=== PATIENT | female | born 1985 | race African-American/Black ===

== ENCOUNTER 2017-11-26 04:07 | Emergency (ER) | payer MEDICAID ==
[~2017-11-26] VITALS: Ht 149.9 cm; Wt 59.0 kg
[~2017-11-26 04:07] MED LIST: FERR-43 PO; FOLI-43 PO; IBUP-516 PO
[2017-11-26] MEDS ORDERED: ONDANSETRON HCL 4MG/2ML VIAL IV STA (05:07)
[2017-11-26] MEDS ORDERED: SODIUM CHLORIDE 0.9% 1,000 ML IV ONE (05:07)
[2017-11-26] MEDS ORDERED: MORPHINE SULFATE 4 MG/ML CPJ (NOT FOR IM USE) IV STA (05:07)
[2017-11-26 05:58] LABS: HEMATOCRIT. 28.2 % (36.0-48.0); HEMOGLOBIN. 9.6 g/dL (12.0-16.0); MEAN CORPUSCULAR VOLUME 81.8 fL (81.0-99.0); MEAN PLATELET VOLUME 9.5 fl (7.4-10.4); PLATELET 121 x1000/uL (130-400); RED BLOOD CELL COUNT 3.45 mill/uL (4.2-5.4); RED CELL DISTRIBUTION WIDTH 18.7 % (11.6-14.6)
[2017-11-26 06:19] LABS: CHLORIDE 109 mEq/L (98-107)
[2017-11-26 06:40] LABS: CLARITY URINE CLEAR (CLEAR); COLOR URINE YELLOW (YELLOW); KETONES URINE NEGATIVE (NEGATIVE); LEUKOCYTE ESTERASE URINE 1+ (NEGATIVE); NITRITE URINE POSITIVE (NEGATIVE); OCCULT BLOOD URINE NEGATIVE (NEGATIVE); PROTEIN URINE NEGATIVE (NEGATIVE); SPECIFIC GRAVITY URINE 1.013 (1.005-1.030)
[2017-11-26] MEDS ORDERED: KETOROLAC 30MG/ML VIAL IV ONE (06:45)
[2017-11-26] MEDS ORDERED: SODIUM CHLORIDE 0.9% 500 ML IV ONE (06:45)
[2017-11-26 06:54] VITALS: BP 104/67
[2017-11-26 07:56] LABS: PLATELET ESTIMATE SLIGHTLY DECREASED
== END 2017-11-26 08:38 | disposition home or self-care (01) ==
LOC: ER 04:31
DX: D57.00 Hb-SS disease with crisis, unspecified (principal); N39.0 Urinary tract infection, site not specified; F12.10 Cannabis abuse, uncomplicated
CPT/HCPCS: 36415; 71045; 80053; 81003; 81025; 85025; 85044; 87077; 87086; 87186; 93005; 96374; 96375; 99285; J1885; J2270; J2405; J7030; J7040; Z7610

== ENCOUNTER 2018-05-26 08:48 | Emergency (ER) | payer MEDICAID ==
[~2018-05-26] VITALS: Ht 149.9 cm; Wt 58.8 kg
[2018-05-26] MEDS ORDERED: SODIUM CHLORIDE 0.9% 1,000 ML IV ONE (10:26)
[2018-05-26] MEDS ORDERED: KETOROLAC 30MG/ML VIAL IV STA (10:26)
[2018-05-26] MEDS ORDERED: ONDANSETRON HCL 4MG/2ML INJ IV STA (10:26)
[2018-05-26] MEDS ORDERED: MORPHINE SULFATE 10 MG/ML CPJ IV ONE (11:00)
[2018-05-26 11:52] LABS: BASOPHILS % 0.5 % (0.0-2.0); CHLORIDE 105 mEq/L (98-107); EOSINOPHILS % 1.6 % (0.0-5.0); HEMOGLOBIN. 11.5 g/dL (12.0-16.0); LYMPHOCYTES % 16.4 % (20.0-50.0); MEAN CORPUSCULAR HEMOGLOBIN 28.2 pg (28.0-32.0); MEAN CORPUSCULAR VOLUME 81.3 fL (81.0-99.0); MEAN PLATELET VOLUME 9.9 fl (7.4-10.4); MONOCYTES % 4.1 % (2.0-8.0); NEUTROPHILS % 77.4 % (40.0-76.0); PLATELET 181 x1000/uL (130-400); RED BLOOD CELL COUNT 4.06 mill/uL (4.2-5.4)
[2018-05-26 11:53] LABS: INR 1.1; PARTIAL THROMBOPLASTIN TIME 30.1 sec (23.4-31.0); PROTHROMBIN TIME 11.1 sec (9.1-11.1)
[2018-05-26 11:56] LABS: CLARITY URINE CLEAR (CLEAR); COLOR URINE YELLOW (YELLOW); KETONES URINE 1+ (NEGATIVE); LEUKOCYTE ESTERASE URINE TRACE (NEGATIVE); NITRITE URINE NEGATIVE (NEGATIVE); OCCULT BLOOD URINE NEGATIVE (NEGATIVE); PH URINE 6.5 (4.5-8.0); PROTEIN URINE NEGATIVE (NEGATIVE); SPECIFIC GRAVITY URINE 1.014 (1.005-1.030)
[2018-05-26 11:59] LABS: ETHANOL BLOOD < 10 mg/dL
[2018-05-26 12:02] LABS: CREATINE KINASE 52 IU/L (26-192)
[2018-05-26 12:08] LABS: HCG SCREEN NEGATIVE
[2018-05-26 12:23] LABS: *BARBITURATES SCREEN URINE NEGATIVE (NEGATIVE)
[2018-05-26 12:24] LABS: *AMPHETAMINES SCREEN URINE NEGATIVE (NEGATIVE); *BENZODIAZEPINES SCREEN URINE NEGATIVE (NEGATIVE); *COCAINE SCREEN URINE NEGATIVE (NEGATIVE); METHADONE URINE SCREEN NEGATIVE (NEGATIVE); OPIATES URINE SCREEN NEGATIVE (NEGATIVE)
[2018-05-26 12:26] LABS: CANNABINOID URINE SCREEN PRESUMTIVE POSITIVE (NEGATIVE); PHENCYCLIDINE URINE SCREEN PRESUMTIVE POSITIVE (NEGATIVE)
[2018-05-26] MEDS ORDERED: LORAZEPAM 2MG/ML CPJ IV ONE (17:15)
[2018-05-26] MEDS ORDERED: DOCUSATE SODIUM 100MG CAPSULE PO PRN (18:30)
[2018-05-26] MEDS ORDERED: ACETAMINOPHEN 325MG TABLET PO PRN (18:30)
[2018-05-26] MEDS ORDERED: IPRATROPIUM/ALBUTEROL 0.5-3(2.5)MG/3ML NEB INH SCH (18:30)
[2018-05-26] MEDS ORDERED: ONDANSETRON HCL 4MG/2ML INJ IV PRN (18:30)
[2018-05-26] MEDS ORDERED: ENOXAPARIN 40MG/0.4ML SYR SUBCUT SCH (18:30)
[2018-05-26] MEDS ORDERED: ACETAMINOPHEN 650MG/20.3ML UDC GT PRN (18:30)
[2018-05-26] MEDS ORDERED: CLONIDINE 0.1MG TABLET PO PRN (18:30)
[2018-05-26] MEDS ORDERED: GUAIFENESIN 200MG/10ML SUGAR FREE UDC PO PRN (18:30)
[2018-05-26] MEDS ORDERED: DIPHENHYDRAMINE 50MG/ML VIAL IV PRN (18:30)
[2018-05-26] MEDS ORDERED: HYDROCODONE/ACETAMINOPHEN 10/325MG TABLET PO PRN (18:30)
[2018-05-26] MEDS ORDERED: HYDROCODONE/ACETAMINOPHEN 5/325MG TABLET PO PRN (18:30)
[2018-05-26] MEDS ORDERED: IPRATROPIUM/ALBUTEROL 0.5-3(2.5)MG/3ML NEB INH PRN (18:30)
[2018-05-26] MEDS ORDERED: ACETAMINOPHEN 650MG SUPP PR PRN (18:30)
[2018-05-26] MEDS ORDERED: SODIUM CHLORIDE 0.9% INJ 3ML FLUSH IVF SCH (22:00)
[2018-05-26] MEDS ORDERED: LORAZEPAM 1MG TABLET PO ONE (22:15)
[2018-05-27] MEDS ORDERED: ONDANSETRON 4MG ODT PO ONE (20:00)
[2018-05-27] MEDS ORDERED: LORAZEPAM 1MG TABLET PO ONE (20:00)
[2018-05-28] MEDS ORDERED: KETOROLAC 30MG/ML VIAL IV ONE (07:00)
[2018-05-28] MEDS ORDERED: SODIUM CHLORIDE 0.9% 1,000 ML IV ONE (07:00)
[2018-05-28 11:04] VITALS: BP 122/78
== END 2018-05-28 11:08 | disposition home or self-care (01) ==
LOC: ER 12:46 → EDBEDREQSVC 13:11 → CANBEDREQ 13:39 → ER 05-28 11:08
DX: D57.00 Hb-SS disease with crisis, unspecified (principal); R53.1 Weakness; F16.10 Hallucinogen abuse, uncomplicated; F32.9 Major depressive disorder, single episode, unspecified; F17.200 Nicotine dependence, unspecified, uncomplicated; Z90.710 Acquired absence of both cervix and uterus
CPT/HCPCS: 36415; 80053; 80305; 80307; 80329; 81003; 82550; 83615; 83880; 84443; 84484; 84703; 85025; 85044; 85610; 85730; 93005; 96374; 96375; 99285; G0482; J1885; J2060; J2270; J2405; J7030; Q0162

== ENCOUNTER 2018-12-22 03:56 | Inpatient (IN) | payer MEDICAID ==
[~2018-12-22] VITALS: Ht 154.9 cm; Wt 59.4 kg
[2018-12-22] MEDS ORDERED: KETOROLAC 30MG/ML VIAL IV STA (04:14)
[2018-12-22] MEDS ORDERED: SODIUM CHLORIDE 0.9% 1,000 ML IV ONE (04:14)
[2018-12-22] MEDS ORDERED: ONDANSETRON HCL 4MG/2ML INJ IV STA (04:14)
[2018-12-22] MEDS ORDERED: MORPHINE SULFATE 4 MG/ML CPJ (NOT FOR IM USE) IV STA (04:14)
[2018-12-22 04:39] LABS: HEMATOCRIT. 27.9 % (36.0-48.0); HEMOGLOBIN. 9.9 g/dL (12.0-16.0); MEAN CORPUSCULAR HEMOGLOBIN 29.5 pg (28.0-32.0); MEAN CORPUSCULAR VOLUME 83.4 fL (81.0-99.0); MEAN PLATELET VOLUME 8.4 fl (7.4-10.4); PLATELET 103 x1000/uL (130-400); RED BLOOD CELL COUNT 3.35 mill/uL (4.2-5.4); RED CELL DISTRIBUTION WIDTH 17.9 % (11.6-14.6)
[2018-12-22 04:44] LABS: CHLORIDE 108 mEq/L (98-107)
[2018-12-22 04:48] LABS: ETHANOL BLOOD < 10 mg/dL
[2018-12-22] MEDS ORDERED: MORPHINE SULFATE 4 MG/ML CPJ (NOT FOR IM USE) IV ONE (05:30)
[2018-12-22 06:21] LABS: CLARITY URINE CLEAR (CLEAR); COLOR URINE YELLOW (YELLOW); KETONES URINE NEGATIVE (NEGATIVE); LEUKOCYTE ESTERASE URINE NEGATIVE (NEGATIVE); NITRITE URINE NEGATIVE (NEGATIVE); OCCULT BLOOD URINE NEGATIVE (NEGATIVE); PH URINE 6.5 (4.5-8.0); PROTEIN URINE NEGATIVE (NEGATIVE); SPECIFIC GRAVITY URINE 1.009 (1.005-1.030); UROBILINOGEN URINE 0.2 E.U./dL (0.2-1.0)
[2018-12-22 06:34] LABS: *AMPHETAMINES SCREEN URINE NEGATIVE (NEGATIVE); *BENZODIAZEPINES SCREEN URINE NEGATIVE (NEGATIVE); METHADONE URINE SCREEN NEGATIVE (NEGATIVE); PHENCYCLIDINE URINE SCREEN NEGATIVE (NEGATIVE)
[2018-12-22 06:35] LABS: *BARBITURATES SCREEN URINE NEGATIVE (NEGATIVE); *COCAINE SCREEN URINE NEGATIVE (NEGATIVE)
[2018-12-22 06:45] LABS: CANNABINOID URINE SCREEN PRESUMTIVE POSITIVE (NEGATIVE); OPIATES URINE SCREEN PRESUMTIVE POSITIVE (NEGATIVE)
[2018-12-22 06:46] LABS: NUCLEATED RED BLOOD CELLS 4 /100 WBC
[2018-12-22 06:47] LABS: PLATELET ESTIMATE DECREASED
[2018-12-22 08:00] VITALS: BP 129/85
[2018-12-22 08:25] VITALS: BP 127/63
[2018-12-22 08:30] VITALS: BP 129/85
[2018-12-22] MEDS ORDERED: GUAIFENESIN 200MG/10ML SUGAR FREE UDC PO PRN (09:00)
[2018-12-22] MEDS ORDERED: CLONIDINE 0.1MG TABLET PO PRN (09:00)
[2018-12-22] MEDS ORDERED: ONDANSETRON HCL 4MG/2ML INJ IV PRN (09:00)
[2018-12-22] MEDS ORDERED: MAGNESIUM/ALUMINUM HYDROXIDE/SIMETHICONE 30ML UDC PO PRN (09:00)
[2018-12-22] MEDS ORDERED: DOCUSATE SODIUM 100MG CAPSULE PO PRN (09:00)
[2018-12-22] MEDS ORDERED: IPRATROPIUM/ALBUTEROL 0.5-3(2.5)MG/3ML NEB INH PRN (09:00)
[2018-12-22] MEDS: FAMOTIDINE 20MG TABLET PO SCH ×2 (09:21→21:25)
[2018-12-22] MEDS: FOLIC ACID 1MG TABLET PO SCH (09:22)
[2018-12-22] MEDS: TRAMADOL 50MG TABLET PO PRN ×2 (09:22→16:27)
[2018-12-22] MEDS: SODIUM CHLORIDE 0.9% 1,000 ML IV SCH ×3 (09:23→23:42)
[2018-12-22] MEDS: KETOROLAC 30MG/ML VIAL IV PRN ×2 (10:35→18:08)
[2018-12-22 12:00] VITALS: BP_SYST 106; BP_SYST 127; BP_DIAS 70; BP_DIAS 75
[2018-12-22] MEDS: LORAZEPAM 0.5MG TABLET PO PRN ×2 (14:02→20:31)
[2018-12-22] MEDS: ACETAMINOPHEN 325MG TABLET PO PRN ×2 (14:43→20:31)
[2018-12-22 16:00] VITALS: BP_SYST 113; BP_SYST 125; BP_DIAS 71; BP_DIAS 79
[2018-12-22 20:00] VITALS: BP 115/82
[2018-12-22] MEDS: ZOLPIDEM TARTRATE 5MG TABLET PO PRN (21:25)
[2018-12-22] MEDS: MORPHINE SULFATE 2 MG/ML CPJ (NOT FOR IM USE) IV PRN (22:33)
[2018-12-23] VITALS: BP_SYST 126; BP_SYST 144; BP_DIAS 68; BP_DIAS 89
[2018-12-23] MEDS: TRAMADOL 50MG TABLET PO PRN ×3 (00:17→13:01)
[2018-12-23] MEDS: KETOROLAC 30MG/ML VIAL IV PRN ×3 (01:28→21:34)
[2018-12-23] MEDS: MORPHINE SULFATE 2 MG/ML CPJ (NOT FOR IM USE) IV PRN ×3 (03:13→17:20)
[2018-12-23 04:00] VITALS: BP 103/65
[2018-12-23] MEDS: ACETAMINOPHEN 325MG TABLET PO PRN ×2 (05:26→20:15)
[2018-12-23 06:09] LABS: CHLORIDE 106 mEq/L (98-107)
[2018-12-23 06:57] LABS: HEMATOCRIT. 22.9 % (36.0-48.0); HEMOGLOBIN. 8.1 g/dL (12.0-16.0); MEAN CORPUSCULAR HEMOGLOBIN 28.9 pg (28.0-32.0); MEAN CORPUSCULAR VOLUME 81.7 fL (81.0-99.0); MEAN PLATELET VOLUME 8.9 fl (7.4-10.4); PLATELET 61 x1000/uL (130-400)
[2018-12-23] MEDS: SODIUM CHLORIDE 0.9% 1,000 ML IV SCH ×3 (06:59→19:31)
[2018-12-23 08:00] VITALS: BP 108/65
[2018-12-23] MEDS: FOLIC ACID 1MG TABLET PO SCH (08:06)
[2018-12-23] MEDS: FAMOTIDINE 20MG TABLET PO SCH ×2 (08:06→20:14)
[2018-12-23 09:48] LABS: PLATELET ESTIMATE DECREASED
[2018-12-23 12:00] VITALS: BP 107/70
[2018-12-23] MEDS: LORAZEPAM 0.5MG TABLET PO PRN ×2 (15:23→20:15)
[2018-12-23 16:00] VITALS: BP 112/80
[2018-12-23 20:00] VITALS: BP 117/87
[2018-12-24] VITALS: BP 110/69
[2018-12-24] MEDS: MORPHINE SULFATE 2 MG/ML CPJ (NOT FOR IM USE) IV PRN (01:34)
[2018-12-24] MEDS: SODIUM CHLORIDE 0.9% 1,000 ML IV SCH (03:02)
[2018-12-24] MEDS: ACETAMINOPHEN 325MG TABLET PO PRN (03:18)
[2018-12-24] MEDS: ZOLPIDEM TARTRATE 5MG TABLET PO PRN (03:22)
[2018-12-24 04:00] VITALS: BP 111/77
[2018-12-24] MEDS: KETOROLAC 30MG/ML VIAL IV PRN (06:10)
[2018-12-24 06:53] LABS: BASOPHILS % 0.5 % (0.0-2.0); EOSINOPHILS % 0.7 % (0.0-5.0); HEMOGLOBIN. 7.6 g/dL (12.0-16.0); LYMPHOCYTES % 18.4 % (20.0-50.0); MEAN CORPUSCULAR HEMOGLOBIN 29.6 pg (28.0-32.0); MEAN CORPUSCULAR VOLUME 81.8 fL (81.0-99.0); MEAN PLATELET VOLUME 8.8 fl (7.4-10.4); MONOCYTES % 5.3 % (2.0-8.0); NEUTROPHILS % 75.1 % (40.0-76.0); RED BLOOD CELL COUNT 2.56 mill/uL (4.2-5.4); RED CELL DISTRIBUTION WIDTH 17.5 % (11.6-14.6)
[2018-12-24 08:00] VITALS: BP 98/68
[2018-12-24 08:11] LABS: HEMATOCRIT. 20.9 % (36.0-48.0); PLATELET 49 x1000/uL (130-400)
[2018-12-24 08:13] LABS: CHLORIDE 108 mEq/L (98-107)
[2018-12-24] MEDS: FOLIC ACID 1MG TABLET PO SCH (09:00)
[2018-12-24] MEDS: FAMOTIDINE 20MG TABLET PO SCH (09:00)
[2018-12-24 09:48] VITALS: BP 98/68
[2018-12-26 13:18] LABS: HGB A2 3.1 % (1.8-3.2); HGB C 41.2 % (0.0); HGB S 50.7 % (0.0); HGB SOLUBILITY Positive (Negative)
== END 2018-12-24 10:45 | disposition home or self-care (01) | DRG 663 ==
LOC: ER 03:56 → 6EST 06:33 → ENRESERV 07:56
PROVIDERS: ADMIT Internal Medicine; ATTEND Internal Medicine
DX: D57.1 Sickle-cell disease without crisis (principal); F11.10 Opioid abuse, uncomplicated; F12.10 Cannabis abuse, uncomplicated; F17.200 Nicotine dependence, unspecified, uncomplicated
CPT/HCPCS: 36415; 71045; 80048; 80305; 80320; 83021; 83615; 85044; 85660; 96374; 96375; 99285; J1885; J2270; J2405; J7030; G0480

== ENCOUNTER 2021-05-25 16:02 | Emergency (ER) | payer MEDICAID ==
[~2021-05-25] VITALS: Ht 170.2 cm; Wt 79.0 kg
[~2021-05-25 16:02] MED LIST changes: +IBUP-2778 PO; -IBUP-516 PO
[2021-05-25 17:12] LABS: BASOPHILS % 1.1 % (0.0-2.0); EOSINOPHILS % 3.6 % (0.0-5.0); HEMATOCRIT. 31.1 % (36.0-48.0); HEMOGLOBIN. 10.6 g/dL (12.0-16.0); LYMPHOCYTES % 34.2 % (20.0-50.0); MEAN CORPUSCULAR HEMOGLOBIN 27.8 pg (28.0-32.0); MEAN CORPUSCULAR VOLUME 81.3 fL (81.0-99.0); MEAN PLATELET VOLUME 8.4 fl (7.4-10.4); MONOCYTES % 4.9 % (2.0-8.0); NEUTROPHILS % 56.2 % (40.0-76.0); PLATELET 130 x1000/uL (130-400); RED BLOOD CELL COUNT 3.82 mill/uL (4.2-5.4)
[2021-05-25 17:19] LABS: CHLORIDE 113 mEq/L (98-107)
[2021-05-25 17:23] LABS: ETHANOL BLOOD 127 mg/dL
[2021-05-25 17:54] LABS: CLARITY URINE CLEAR (CLEAR); COLOR URINE YELLOW (YELLOW); KETONES URINE NEGATIVE (NEGATIVE); LEUKOCYTE ESTERASE URINE 2+ (NEGATIVE); NITRITE URINE NEGATIVE (NEGATIVE); OCCULT BLOOD URINE NEGATIVE (NEGATIVE); PROTEIN URINE NEGATIVE (NEGATIVE); SPECIFIC GRAVITY URINE 1.003 (1.005-1.030); UROBILINOGEN URINE 0.2 E.U./dL (0.2-1.0)
[2021-05-25 18:09] LABS: *AMPHETAMINES SCREEN URINE NEGATIVE (NEGATIVE); *BARBITURATES SCREEN URINE NEGATIVE (NEGATIVE); *BENZODIAZEPINES SCREEN URINE NEGATIVE (NEGATIVE); *COCAINE SCREEN URINE NEGATIVE (NEGATIVE); METHADONE URINE SCREEN NEGATIVE (NEGATIVE); OPIATES URINE SCREEN NEGATIVE (NEGATIVE); PHENCYCLIDINE URINE SCREEN NEGATIVE (NEGATIVE)
[2021-05-25 18:17] LABS: CANNABINOID URINE SCREEN PRESUMTIVE POSITIVE (NEGATIVE)
[2021-05-25] MEDS ORDERED: POTASSIUM CHLORIDE 20MEQ TABLET SR PO ONE (19:30)
[2021-05-25 21:00] VITALS: BP 106/72
== END 2021-05-25 21:05 | disposition home or self-care (01) ==
LOC: ER 16:02
DX: T39.311A Poisoning by propionic acid derivatives, accidental (unintentional), initial encounter (principal); I49.9 Cardiac arrhythmia, unspecified; Y92.9 Unspecified place or not applicable
CPT/HCPCS: 36415; 80053; 80305; 80307; 80320; 80329; 81003; 85025; 93005; 99284; G0480

== ENCOUNTER 2023-01-23 02:33 | Emergency (ER) | payer OTHER, MEDICAID ==
[~2023-01-23] VITALS: Ht 170.2 cm; Wt 73.0 kg
[2023-01-23 02:35] VITALS: O2SAT 98
[2023-01-23] MEDS ORDERED: ACETAMINOPHEN 325MG TABLET PO ONE (03:00)
[2023-01-23] MEDS: ACETAMINOPHEN 325MG TABLET PO NR ×3 (05:59→07:11)
[2023-01-23] MEDS ORDERED: TOPUD PO (07:11)
[2023-01-23 08:32] VITALS: BP 116/78; PULSE 85; RESP 20; TEMP 98.2
== END 2023-01-23 08:34 | disposition home or self-care (01) ==
LOC: ER 02:33
DX: S00.83XA Contusion of other part of head, initial encounter (principal); S60.512A Abrasion of left hand, initial encounter; M25.562 Pain in left knee; D57.1 Sickle-cell disease without crisis; Y09 Assault by unspecified means; Y93.89 Activity, other specified; Y92.89 Other specified places as the place of occurrence of the external cause; Y99.8 Other external cause status
CPT/HCPCS: 70486; 73130; 73560; 81025; 99284

== ENCOUNTER 2023-01-23 08:24 | Inpatient (IN) | payer MEDICAID, OTHER ==
[~2023-01-23] VITALS: Ht 152.4 cm; Wt 61.0 kg
[~2023-01-23 08:24] MED LIST changes: +TOPUD PO
[2023-01-23] MEDS ORDERED: HYDROCODONE/ACETAMINOPHEN 7.5/325MG TABLET PO ONE (10:00)
[2023-01-23 10:14] LABS: HEMATOCRIT. 23.8 % (36.0-48.0); MEAN CORPUSCULAR HEMOGLOBIN 28.2 pg (28.0-32.0); MEAN CORPUSCULAR HGB CONC 33.9 g/dL (31.0-37.0); MEAN CORPUSCULAR VOLUME 83.3 fL (81.0-99.0); PLATELET 102 x1000/uL (130-400); RED BLOOD CELL COUNT 2.85 mill/uL (4.2-5.4); RED CELL DISTRIBUTION WIDTH 18.2 % (11.6-14.6); WHITE BLOOD COUNT 14.9 x1000/uL (4.5-11.0)
[2023-01-23 10:17] LABS: CHLORIDE 111 mEq/L (98-107); INDEX HEMOLYSI 1 (1-3); INDEX ICTERIC 1 (1-4); INDEX LIPEMIC 1 (1-3); POTASSIUM 3.5 mEq/L (3.5-5.1); SODIUM 138 mEq/L (136-145)
[2023-01-23 10:21] LABS: DIFFERENTIAL COMMENT 1
[2023-01-23 10:23] LABS: ALANINE AMINOTRANSFERASE 54 IU/L (13-61); ALBUMIN 4.3 g/dL (3.4-5.0); ASPARTATE AMINOTRANSFERASE 64 IU/L (15-37); BILIRUBIN TOTAL 1.3 mg/dL (0.1-1.0); CALCIUM 8.4 mg/dL (8.5-10.1); CARBON DIOXIDE 24 mEq/L (21-32); CREATININE 0.8 mg/dL (0.6-1.3); GLUCOSE 107 mg/dL (70-105); PROTEIN TOTAL 7.9 g/dL (6.0-8.3); UREA NITROGEN BLOOD 11 mg/dL (7-21)
[2023-01-23 10:32] LABS: HCG SCREEN NEGATIVE
[2023-01-23 10:56] LABS: ANISOCYTOSIS 1+; PLATELET ESTIMATE SLIGHTLY DECREASED
[2023-01-23] MEDS ORDERED: SODIUM CHLORIDE 0.9% 1,000 ML IV ONE (12:45)
[2023-01-23] MEDS ORDERED: MORPHINE SULFATE 4 MG/ML CPJ (NOT FOR IM USE) IV ONE ×2 (12:45→15:30)
[2023-01-23] MEDS ORDERED: DIPHENHYDRAMINE 50MG/ML VIAL IV ONE (15:30)
[2023-01-23 17:44] LABS: CLARITY URINE CLEAR (CLEAR); COLOR URINE YELLOW (YELLOW); GLUCOSE URINE NEGATIVE (NEGATIVE); KETONES URINE NEGATIVE (NEGATIVE); LEUKOCYTE ESTERASE URINE 2+ (NEGATIVE); NITRITE URINE POSITIVE (NEGATIVE); OCCULT BLOOD URINE TRACE (NEGATIVE); PH URINE 5.5 (4.5-8.0); PROTEIN URINE NEGATIVE (NEGATIVE); SPECIFIC GRAVITY URINE 1.011 (1.005-1.030); UROBILINOGEN URINE 0.2 E.U./dL (0.2-1.0)
[2023-01-23 17:46] LABS: BACTERIA URINE 4+; YEAST URINE NONE SEEN
[2023-01-23 18:48] LABS: RBC URINE 0-2 /hpf (0-2); SQUAMOUS EPITHELIAL CELL URINE FEW /lpf (RARE/1+)
[2023-01-23 20:00] VITALS: BP 120/87; PULSE 111; RESP 18; TEMP 100.8
[2023-01-23] MEDS ORDERED: ONDANSETRON HCL 4MG/2ML INJ IV PRN (20:30)
[2023-01-23] MEDS: SODIUM CHLORIDE 0.9% 1,000 ML IV SCH (21:30)
[2023-01-23] MEDS: MORPHINE SULFATE 2 MG/ML CPJ (NOT FOR IM USE) IV PRN ×3 (21:35→23:21)
[2023-01-23 22:00] LABS: CHLORIDE 103 mEq/L (98-107); INDEX HEMOLYSI 1 (1-3); INDEX ICTERIC 1 (1-4); INDEX LIPEMIC 1 (1-3); POTASSIUM 3.7 mEq/L (3.5-5.1); SODIUM 135 mEq/L (136-145)
[2023-01-23] MEDS ORDERED: CEFTRIAXONE SODIUM 1 G/VIAL IV SCH (22:00)
[2023-01-23] MEDS: CEFTRIAXONE 1,000 MG in DEXTROSE 5% WATER 50 ML IV SCH (22:00)
[2023-01-23 22:05] LABS: MEAN CORPUSCULAR HEMOGLOBIN 28.6 pg (28.0-32.0); MEAN CORPUSCULAR HGB CONC 34.6 g/dL (31.0-37.0); MEAN CORPUSCULAR VOLUME 82.7 fL (81.0-99.0); MEAN PLATELET VOLUME 8.1 fl (7.4-10.4); PLATELET 98 x1000/uL (130-400); RED BLOOD CELL COUNT 2.54 mill/uL (4.2-5.4); RED CELL DISTRIBUTION WIDTH 19.1 % (11.6-14.6); WHITE BLOOD COUNT 18.9 x1000/uL (4.5-11.0)
[2023-01-23 22:06] LABS: DIFFERENTIAL COMMENT 1
[2023-01-23 22:08] LABS: ALANINE AMINOTRANSFERASE 47 IU/L (13-61); ALBUMIN 4.1 g/dL (3.4-5.0); ASPARTATE AMINOTRANSFERASE 89 IU/L (15-37); BILIRUBIN TOTAL 1.6 mg/dL (0.1-1.0); CALCIUM 8.5 mg/dL (8.5-10.1); CARBON DIOXIDE 25 mEq/L (21-32); CREATININE 0.7 mg/dL (0.6-1.3); GLUCOSE 134 mg/dL (70-105); PROTEIN TOTAL 7.4 g/dL (6.0-8.3); UREA NITROGEN BLOOD 10 mg/dL (7-21)
[2023-01-23 22:19] LABS: HEMOGLOBIN. 7.3 g/dL (12.0-16.0)
[2023-01-23 22:30] VITALS: BP 104/62; PULSE 105; RESP 18; TEMP 101.3
[2023-01-23 22:41] LABS: NUCLEATED RED BLOOD CELLS 7 /100 WBC; PLATELET ESTIMATE DECREASED
[2023-01-23 22:42] LABS: ANISOCYTOSIS 1+
[2023-01-23] MEDS: HYDROCODONE/ACETAMINOPHEN 5/325MG TABLET PO PRN (22:43)
[2023-01-24] VITALS: BP 104/62; PULSE 79; RESP 17; TEMP 101.3
[2023-01-24] MEDS: ACETAMINOPHEN 325MG TABLET PO PRN (00:20)
[2023-01-24] MEDS: DIPHENHYDRAMINE 50MG/ML VIAL IV PRN ×3 (00:21→21:47)
[2023-01-24] MEDS: MORPHINE SULFATE 2 MG/ML CPJ (NOT FOR IM USE) IV PRN ×6 (02:25→20:19)
[2023-01-24] MEDS: HYDROCODONE/ACETAMINOPHEN 5/325MG TABLET PO PRN ×3 (03:31→23:10)
[2023-01-24 04:00] VITALS: BP 105/57; PULSE 73; RESP 18; TEMP 98.9
[2023-01-24 08:00] VITALS: BP 108/75; PULSE 68; RESP 17; TEMP 97.5
[2023-01-24] MEDS: FOLIC ACID/VITAMIN B COMP W-C TABLET PO SCH (09:21)
[2023-01-24] MEDS: SODIUM CHLORIDE 0.9% 1,000 ML IV SCH ×3 (09:21→14:12)
[2023-01-24 12:00] VITALS: BP 106/65; PULSE 70; RESP 18; TEMP 98.1
[2023-01-24 13:26] LABS: HEPATITIS B SURFACE ANTIGEN NEGATIVE
[2023-01-24 14:50] LABS: *AMPHETAMINES SCREEN URINE NEGATIVE (NEGATIVE); *BARBITURATES SCREEN URINE NEGATIVE (NEGATIVE); *BENZODIAZEPINES SCREEN URINE NEGATIVE (NEGATIVE); *COCAINE SCREEN URINE NEGATIVE (NEGATIVE); CANNABINOID URINE SCREEN NEGATIVE (NEGATIVE); ECSTASY MDMA SCREEN URINE NEGATIVE (NEGATIVE); METHADONE URINE SCREEN NEGATIVE (NEGATIVE); PHENCYCLIDINE URINE SCREEN NEGATIVE (NEGATIVE)
[2023-01-24 15:23] LABS: OPIATES URINE SCREEN PRESUMTIVE POSITIVE (NEGATIVE)
[2023-01-24 16:00] VITALS: BP 107/68; PULSE 68; RESP 17; TEMP 98.5
[2023-01-24 20:00] VITALS: BP 119/74; PULSE 99; RESP 18; TEMP 98.1
[2023-01-24] MEDS: CEFTRIAXONE 1,000 MG in DEXTROSE 5% WATER 50 ML IV SCH (21:47)
[2023-01-25] VITALS: BP 111/75; PULSE 102; RESP 18; TEMP 97.7
[2023-01-25] MEDS: HYDROCODONE/ACETAMINOPHEN 5/325MG TABLET PO PRN ×2 (06:10→11:42)
[2023-01-25 07:23] LABS: BASOPHILS % 0.5 % (0.0-2.0); EOSINOPHILS % 0.5 % (0.0-5.0); HEMOGLOBIN. 7.2 g/dL (12.0-16.0); LYMPHOCYTES % 12.7 % (20.0-50.0); MEAN CORPUSCULAR HEMOGLOBIN 29.3 pg (28.0-32.0); MEAN CORPUSCULAR HGB CONC 34.6 g/dL (31.0-37.0); MEAN CORPUSCULAR VOLUME 84.6 fL (81.0-99.0); MEAN PLATELET VOLUME 7.5 fl (7.4-10.4); MONOCYTES % 5.2 % (2.0-8.0); NEUTROPHILS % 81.1 % (40.0-76.0); PLATELET 96 x1000/uL (130-400); RED BLOOD CELL COUNT 2.47 mill/uL (4.2-5.4); RED CELL DISTRIBUTION WIDTH 19.2 % (11.6-14.6); WHITE BLOOD COUNT 15.4 x1000/uL (4.5-11.0)
[2023-01-25 07:37] LABS: HEMATOCRIT. 20.9 % (36.0-48.0)
[2023-01-25 08:00] VITALS: BP 148/64; PULSE 85; RESP 18; TEMP 97.7
[2023-01-25 08:25] LABS: CHLORIDE 100 mEq/L (98-107); INDEX HEMOLYSI 1 (1-3); INDEX ICTERIC 1 (1-4); INDEX LIPEMIC 1 (1-3); POTASSIUM 3.5 mEq/L (3.5-5.1); SODIUM 132 mEq/L (136-145)
[2023-01-25 08:31] LABS: CALCIUM 8.7 mg/dL (8.5-10.1); CARBON DIOXIDE 26 mEq/L (21-32); CREATININE 0.7 mg/dL (0.6-1.3); GLUCOSE 130 mg/dL (70-105); UREA NITROGEN BLOOD 7 mg/dL (7-21)
[2023-01-25] MEDS: FOLIC ACID/VITAMIN B COMP W-C TABLET PO SCH (09:02)
[2023-01-25] MEDS: MORPHINE SULFATE 2 MG/ML CPJ (NOT FOR IM USE) IV PRN ×4 (09:02→22:37)
[2023-01-25] MEDS ORDERED: NALOXONE HCL 0.4MG/ML VIAL IV PRN (14:45)
[2023-01-25 16:00] VITALS: BP 123/72; PULSE 101; RESP 18; TEMP 97.4
[2023-01-25 20:00] VITALS: BP 107/73; PULSE 99; RESP 20; TEMP 98.8
[2023-01-25] MEDS: SODIUM CHLORIDE 0.9% 1,000 ML IV SCH (22:37)
[2023-01-25] MEDS: CEFTRIAXONE 1,000 MG in DEXTROSE 5% WATER 50 ML IV SCH (23:09)
[2023-01-26 00:40] VITALS: BP 102/67; PULSE 101; RESP 16; TEMP 98.8
[2023-01-26 04:00] VITALS: BP 107/61; PULSE 103; RESP 20; TEMP 98.8
[2023-01-26] MEDS: MORPHINE SULFATE 2 MG/ML CPJ (NOT FOR IM USE) IV PRN ×2 (04:58→08:41)
[2023-01-26 06:54] LABS: BASOPHILS % 0.7 % (0.0-2.0); LYMPHOCYTES % 17.4 % (20.0-50.0); MEAN CORPUSCULAR HEMOGLOBIN 29.3 pg (28.0-32.0); MEAN CORPUSCULAR HGB CONC 34.6 g/dL (31.0-37.0); MEAN CORPUSCULAR VOLUME 84.9 fL (81.0-99.0); MEAN PLATELET VOLUME 7.5 fl (7.4-10.4); MONOCYTES % 6.5 % (2.0-8.0); NEUTROPHILS % 74.4 % (40.0-76.0); PLATELET 84 x1000/uL (130-400); RED BLOOD CELL COUNT 2.37 mill/uL (4.2-5.4); RED CELL DISTRIBUTION WIDTH 19.3 % (11.6-14.6); WHITE BLOOD COUNT 12.2 x1000/uL (4.5-11.0)
[2023-01-26 07:31] LABS: HEMATOCRIT. 20.1 % (36.0-48.0)
[2023-01-26 08:00] VITALS: BP 99/66; PULSE 108; RESP 20; TEMP 99.1
[2023-01-26] MEDS: FOLIC ACID/VITAMIN B COMP W-C TABLET PO SCH (08:11)
[2023-01-26 09:44] LABS: INDEX HEMOLYSI 1 (1-3); INDEX ICTERIC 1 (1-4); INDEX LIPEMIC 1 (1-3)
[2023-01-26 10:00] VITALS: BP 100/56; PULSE 108; RESP 20; TEMP 97.9
[2023-01-26 10:19] LABS: CALCIUM 8.7 mg/dL (8.5-10.1); CARBON DIOXIDE 28 mEq/L (21-32); CHLORIDE 103 mEq/L (98-107); CREATININE 0.8 mg/dL (0.6-1.3); GLUCOSE 100 mg/dL (70-105); POTASSIUM 3.7 mEq/L (3.5-5.1); SODIUM 135 mEq/L (136-145); UREA NITROGEN BLOOD 9 mg/dL (7-21)
[2023-01-26] MEDS: DIPHENHYDRAMINE 50MG/ML VIAL IV PRN (11:25)
[2023-01-26] MEDS: ACETAMINOPHEN 325MG TABLET PO PRN (11:41)
[2023-01-26 12:00] VITALS: BP 99/58; PULSE 110; RESP 20; TEMP 100
[2023-01-26 13:34] VITALS: BP 95/58; PULSE 110; TEMP 100; O2SAT 99
[2023-01-28 21:42] LABS: HEPATITIS C VIR.AB 0.14 INDEXVAL (0.00-0.80)
== END 2023-01-26 16:42 | disposition home or self-care (01) | DRG 662 ==
LOC: ER 08:32 → EDBEDREQ 12:42 → CANBEDREQ 13:40 → 6WST 21:30 → 7WST 01-25 14:26
PROVIDERS: ADMIT Internal Medicine; ATTEND Internal Medicine
DX: D57.00 Hb-SS disease with crisis, unspecified (principal); D72.829 Elevated white blood cell count, unspecified; M25.561 Pain in right knee; M54.50 Low back pain, unspecified; N39.0 Urinary tract infection, site not specified; M25.562 Pain in left knee; Z79.1 Long term (current) use of non-steroidal anti-inflammatories (NSAID); Z79.899 Other long term (current) drug therapy
CPT/HCPCS: 36415; 80048; 80053; 80305; 81003; 84703; 85025; 85044; 86803; 87340; 97162; 97166; 99285; J0696; J1200; J2270; J7030; J7060